=== PATIENT | female | born 1965 | race Caucasian/White ===

== ENCOUNTER 2017-06-09 10:37 | Day surgery (SDC) | payer BC ==
[2017-06-09] VITALS (7 sets, daily range): BP systolic 104–112; BP diastolic 53–68; PULSE 61–74; RESP 14–18; Ht 157.5 cm; Wt 73.0 kg
[~2017-06-09] VITALS: Ht 157.5 cm; Wt 73.0 kg
[~2017-06-09 10:37] MED LIST: FER325 PO; LANT3I SC; LIDOCAINE 1% (MDV) 20 ML INJ ONE; PANT40TA4 PO; PROP10TA6 PO
--- NOTE | 2017-06-09 12:08 | RADRPT ---
PROCEDURE: XR Chest. CLINICAL INDICATION: Preop TECHNIQUE: Single AP portable chest. COMPARISON: No prior Chest x-ray FINDINGS: The cardiomediastinal silhouette is within normal limits of size.The lungs are clear without pleura l effusion or focal consolidation. No pneumothorax. The osseous structures and soft tissues are unre markable. IMPRESSION: 1. No evidence for active cardiopulmonary disease. RPTAT:AAJJ Stephanie Malik Physician Date Time Electronically viewed and signed by Stephanie Malik Physician on 06/09/2017 12:08 SARIAH/
[2017-06-09 12:31] LABS: ABNORMAL IP MESSAGE 1; BASOPHILS % 0.4 % (0.0-2.0); EOSINOPHILS % 0.8 % (0.0-7.0); HEMATOCRIT 35.8 % (37.0-47.0); HEMOGLOBIN 12.3 g/dl (12.0-16.0); LYMPHOCYTES # 1.6 10^3/ul (0.8-2.9); LYMPHOCYTES % 31.4 % (15.0-51.0); MEAN CORPUSCULAR HEMOGLOBIN 29.6 pg (29.0-33.0); MEAN CORPUSCULAR HGB CONC 34.4 g/dl (32.0-37.0); MEAN CORPUSCULAR VOLUME 86.1 fl (82.0-101.0); MEAN PLATELET VOLUME 10.8 fl (7.4-10.4); MONOCYTE # 0.4 10^3/ul (0.3-0.9); MONOCYTES % 7.3 % (0.0-11.0); NEUTROPHILS % 59.9 % (39.0-77.0); PLATELET COUNT 97 10^3/UL (140-415); RED BLOOD COUNT 4.16 10^6/ul (4.20-5.40); RED CELL DISTRIBUTION WIDTH 13.8 % (11.5-14.5); WHITE BLOOD COUNT 4.9 10^3/ul (4.8-10.8)
[2017-06-09 12:34] LABS: POSITIVE DIFF @See below
[2017-06-09 12:43] LABS: INR 1.16; PROTIME 14.8 Sec (12.2-14.2); PT RATIO 1.2
[2017-06-09 12:44] LABS: PARTIAL THROMBOPLASTIN TIME 31.9 Sec (25.0-35.0)
[2017-06-09 13:05] LABS: CALCIUM 9.4 mg/dl (8.4-10.2); CREATININE 0.87 mg/dl (0.44-1.00); POTASSIUM 4.5 mmol/L (3.5-5.1)
[2017-06-09] MEDS ORDERED: CEFAZOLIN 2 GM/50 ML (PMX) 50 ML IVPB SCH (13:36)
[2017-06-09] MEDS ORDERED: SOD CHLORIDE 0.9% 1,000 ML IV SCH (13:36)
--- NOTE | 2017-06-09 14:32 | RADRPT ---
Vent Rate: 66 bpm RR Interval: 0 msec MD Interval: 126 msec QRS Duration: 78 msec QT Interval: 436 msec QTC Interval: 457 msec P-R-T [place]: 21 - 33 - 12 degrees Normal sinus rhythm Normal ECG Electronically Signed By: Giovani Shoemaker [id number]
[2017-06-09] MEDS ORDERED: BUPIVACAINE 0.25% (MPF) 30 ML INJ ONE (14:36)
[2017-06-09] MEDS ORDERED: MIDAZOLAM 1 MG/ML 2 ML INJ ONE (14:53)
[2017-06-09] MEDS ORDERED: PROPOFOL 20 ML ONE (14:53)
[2017-06-09] MEDS ORDERED: ONDANSETRON 4 MG INJ ONE (15:01)
[2017-06-09] MEDS ORDERED: DEXAMETHASONE 4 MG/ML 1 ML INJ ONE (15:01)
[2017-06-09] MEDS ORDERED: FAMOTIDINE 20 MG INJ ONE (15:01)
[2017-06-09] MEDS ORDERED: CEFAZOLIN 1 GM INJ ONE (15:17)
[2017-06-09] MEDS ORDERED: FENTAnyl 50 MCG/ML VIAL ONE (15:35)
--- NOTE | 2017-06-09 15:49 | OPR ---
Date/Time of Note Date/Time of Note DATE: 06/09/17 TIME: 15:46 Operative Report Procedure Date: Jun 09, 2017 Preoperative Diagnosis left breast mass Postoperative Diagnosis same Operation Performed 1. left breast mass excision 6 cm incision 6 x 3 cm mass 2. localized adjacent tissue transfer with the use of skin flaps 18 sq cm defect 3. therapeutic injection of subcutaneous marcaine Surgeon: Jackie FERNANDEZ Specimens left breast mass Indications This is a 51-year-old female with a left breast mass she required surgical excision. Risks alternatives benefits and percent were discussed the patient. Patient expresses understanding and consents to the operation. Procedure Description Patient is taken to the OR and prepped and draped in usual sterile fashion. Surgical timeout was performed IV antibiotics given. Left outer lower breast mass is identified. Elliptical radial incision is made with a 15 blade circumferentially around the mass. Dissection cautery was carried onto the mass and the mass was excised. Hemostasis is established. Due to large tissue defect localized adjacent tissue transfer with these of skin flaps was performed the flaps are closed in a multilayer fashion with interrupted 3-0 Vicryl and running 4-0 Monocryl. Therapeutic subcutaneous Marcaine is injected along the incision site. Dry dressings were applied. Jackie FERNANDEZ Jun 09, 2017 15:49
[2017-06-09] MEDS ORDERED: BUPIVACAINE 0.25% (MPF) 30 ML INJ INJ ONE (15:54)
[2017-06-09] MEDS ORDERED: HYDROCODONE/APAP (5/325) TAB PO ONE (16:00)
[2017-06-09] MEDS ORDERED: KETOROLAC 30 MG INJ IV PRN (16:00)
[2017-06-09] MEDS ORDERED: ONDANSETRON 4 MG INJ IV PRN (16:00)
[2017-06-09] MEDS ORDERED: HYDROmorphONE (0.2 MG/ML) 10ML SYG IV PRN (16:00)
[2017-06-09] MEDS ORDERED: FENTAnyl 50 MCG/ML VIAL IV PRN (16:00)
[2017-06-09] MEDS ORDERED: morphine (1 MG/ML) 10ML SYRINGE IV PRN ×2 (16:00)
== END 2017-06-09 17:15 | disposition home or self-care (01) ==
LOC: SDS 10:37
PROVIDERS: ATTEND Surgery
DX: N60.02 Solitary cyst of left breast (principal); N61.1 Abscess of the breast and nipple; E11.9 Type 2 diabetes mellitus without complications; I10 Essential (primary) hypertension; K74.60 Unspecified cirrhosis of liver
CPT/HCPCS: 14001; 19120; 71010; 80048; 82962; 84703; 85025; 85610; 85730; 88307; 93005; J0690; J1100; J2250; J2405; J3010; Z7512; Z7610